=== PATIENT | female | born 1950 | race Caucasian/White ===

== ENCOUNTER 2017-03-14 08:08 | Observation (INO) | payer OTHER, SELFPAY ==
[2017-03-14 08:48] VITALS: BMI 33.8
[2017-03-14] MEDS ORDERED: DiphenhydrAMINE 50 mg/ml Inj IVP STA (10:00)
[2017-03-14] MEDS ORDERED: Piperacillin/Tazobact 3.375 gm 100 ML IVPB STA (10:00)
[2017-03-14] MEDS ORDERED: Vancomycin 1gm in NS 250ml 1 GM/250 ML BAG IVPB STA (10:00)
--- NOTE | 2017-03-14 10:06 | ED PDOC ---
Arrival/HPI - General Chief Complaint: Finger,Hand,&Wrist Time Seen by Provider: 03/14/17 08:09 Historian: Patient - History of Present Illness Narrative History of Present Illness (Text): 03/14/17 10:03 66 y/o female, pmh including htn/dm, nkda, c/o lt. hand 4th digit finger swelling x 3 days. Pt. stated that she woke up from sleeping 3 days ago has been swelling and pain, more redness and swelling for the past 2 days, painful to bend and extend, no numbness or tingling, no fever or chills, no night sweat , no dizziness, no other medical or psychological complaints. Past Medical History - Provider Review Nursing Documentation Reviewed: Yes - Tetanus Immunization Tetanus Immunization: Unknown - Reproductive Menopause: Yes - Cardiac Hx Cardiac Disorders: Yes Hx Hypertension: Yes - Pulmonary Hx Respiratory Disorders: No - Neurological Hx Neurological Disorder: No - HEENT Hx HEENT Disorder: No - Renal Hx Renal Disorder: No - Endocrine/Metabolic Hx Endocrine Disorders: No - Hematological/Oncological Hx Blood Disorders: No - Integumentary Hx Dermatological Disorder: No - Musculoskeletal/Rheumatological Hx Musculoskeletal Disorders: No - Gastrointestinal Hx Gastrointestinal Disorders: No - Genitourinary/Gynecological Hx Genitourinary Disorders: No - Psychiatric Hx Psychophysiologic Disorder: No Hx Emotional Abuse: No Hx Physical Abuse: No Hx Substance Use: No - Past Surgical History Past Surgical History: No Previous - Surgical History Hx Tubal Ligation: Yes Other/Comment: LT LEG SURGERY - Anesthesia Hx Anesthesia: Yes Hx Anesthesia Reactions: No Hx Malignant Hyperthermia: No - Suicidal Assessment Feels Threatened In Home Enviroment: No Family/Social History - Physician Review Nursing Documentation Reviewed: Yes Family/Social History: Unknown Family HX Smoking Status: Never Smoked Hx Alcohol Use: No Hx Substance Use: No Hx Substance Use Treatment: No Allergies/Home Meds Allergies/Adverse Reactions: Allergies No Known Allergies Allergy (Verified 03/14/17 08:48) Home Medications: Home Meds Medication Instructions Recorded Confirmed Enalapril/Hydrochlorothiazide 1 each PO DAILY 03/14/17 03/14/17 [Enalapril-Hctz 10-25 mg Tablet] Review of Systems - Review of Systems Constitutional: absent: Fatigue, Fevers Eyes: absent: Vision Changes ENT: absent: Hearing Changes Respiratory: absent: SOB, Cough Cardiovascular: absent: Chest Pain Gastrointestinal: absent: Abdominal Pain, Nausea, Vomiting Musculoskeletal: Arthralgias, Joint Swelling. absent: Back Pain, Neck Pain, Myalgias Skin: Rash, Cellulitis. absent: Pruritis, Skin Lesions, Laceration, Abscess, Ulcer Neurological: absent: Headache, Dizziness, Focal Weakness Physical Exam Vital Signs Reviewed: Yes Vital Signs Temp Pulse Resp BP Pulse Ox 03/14/17 11:47 97.9 F 61 18 160/70 H 100 03/14/17 08:44 97.9 F 67 18 154/69 H 98 Temperature: Afebrile Blood Pressure: Hypertensive Pulse: Regular Respiratory Rate: Normal Appearance: Positive for: Well-Appearing, Non-Toxic, Comfortable Pain Distress: Moderate Mental Status: Positive for: Alert and Oriented X 3 - Systems Exam Head: Present: Atraumatic, Normocephalic Pupils: Present: PERRL Extroacular Muscles: Present: EOMI Conjunctiva: Present: Normal Mouth: Present: Moist Mucous Membranes Neck: Present: Normal Range of Motion Respiratory/Chest: Present: Clear to Auscultation, Good Air Exchange. No: Respiratory Distress, Accessory Muscle Use Cardiovascular: Present: Regular Rate and Rhythm, Normal S1, S2. No: Murmurs Abdomen: Present: Normal Bowel Sounds. No: Tenderness, Distention, Peritoneal Signs Back: Present: Normal Inspection Upper Extremity: Present: Normal Inspection, Other (Lt. hand: +ttp and swelling with tenderness on the 4th digit finger with erythematous streaking up to the extensor surface, no flexor tendon tenderness, painful to flex the 4th DIPJ and PIPJ actively, +radial pulse, capillary refill< 2 seconds, neurovasular intact. ). No: Cyanosis, Edema Lower Extremity: Present: Normal Inspection. No: Edema Neurological: Present: GCS=15, CN II-XII Intact, Speech Normal Skin: Present: Warm, Dry, Normal Color. No: Rashes Psychiatric: Present: Alert, Oriented x 3, Normal Insight, Normal Concentration Medical Decision Making ED Course and Treatment: 03/14/17 10:06 -labs/blood culture -chest xray and and lt. hand 4th digit xray -IV vancomycin/zosyn/toradol/benadryl/fluid -need to be admitted for IV antibiotic with ID/hand specialist consult as clinically concerning about the extensive of the infection as I clinically can not rule out tenosynovitis vs. flexor tendon infection vs. other underlying infectious cause. -discussed with DR. Wright about the case and he agreed to observe the patient.- 03/14/17 12:39 -EKG: Sinus Bradycardia @ 56 BPM, no ST elevation or depression, no T wave inversion. -Chest xray show no active disease -Lt. hand 4th digit show cortical deformity, no recent fall or trauma with no pain until the redness started, finger splinted applied for supportive treatment. -Labs are non-significant -UA show +UTI 03/14/17 13:14 -I spoke to Dr. Dalton, discussed about the case, agreed on the admission. - Lab Interpretations Lab Results: 03/14/17 10:05 03/14/17 12:00 Lab Results 03/14/17 12:00: Sodium 141, Potassium 3.9, Chloride 103, Carbon Dioxide 28, Anion Gap 14, BUN 13, Creatinine 0.8, Est GFR ( Amer) > 60, Est GFR (Non- Af Amer) > 60, Random Glucose 86, Calcium 8.9, Total Bilirubin 0.5, AST 19, ALT 27, Alkaline Phosphatase 68, Total Protein 7.3, Albumin 4.1, Globulin 3.2, Albumin/Globulin Ratio 1.3 03/14/17 10:05: Urine Color Yellow, Urine Appearance Sl cloudy, Urine pH 7.0, Ur Specific [place] 1.010, Urine Protein Negative, Urine Glucose (UA) Negative, Urine Ketones Negative, Urine Blood Small H, Urine Nitrate Negative, Urine Bilirubin Negative, Urine Urobilinogen 0.2, Ur Leukocyte Esterase Large H, Urine RBC 2 - 5, Urine WBC 20 - 25, Ur Epithelial Cells 1 - 3, Urine Bacteria Few 03/14/17 10:05: WBC 8.6 D, RBC 4.60, Hgb 14.1, Hct 41.6, MCV 90.4, MCH 30.7, MCHC 33.9, RDW 13.4, Plt Count 251, MPV 10.8, Gran % 63.5, Lymph % (Auto) 25.6, [place] % (Auto) 8.8 H, Eos % (Auto) 1.9, Baso % (Auto) 0.2, Gran # 5.44, Lymph # 2.2, [place] # 0.8 H, Eos # 0.2, Baso # 0.02 I have reviewed the lab results: Yes Interpretation: Abnormal lab values (+UTI) - RAD Interpretation Radiology Orders: 03/14/17 10:00 CHEST ONE VIEW [RAD] Stat 03/14/17 10:01 HAND LEFT 4TH DIGIT (FINGER) [RAD] Stat This report is currently processing and HAS NOT BEEN OFFICIALLY SIGNED BY THE PHYSICIAN - ESTIMATED TIME OF APPROVAL IS 03/14/2017 11:14. PROCEDURE: Left Hand and 4th digit Radiographs. HISTORY: lt. hand 4th digit swelling COMPARISON: None. FINDINGS: BONES: There is a small calcification or bony fragment on the radial side of the 4th DIP joint. The age of this injury is uncertain. Clinical correlation is suggested JOINTS: Normal. No osteoarthritic changes. SOFT TISSUES: Normal. OTHER FINDINGS: None. IMPRESSION: There is a small calcification or bony fragment on the radial side of the 4th DIP joint. The age of this injury is uncertain. Clinical correlation is suggested Chest xray: no active disease Design Lead: Radiologist - EKG Interpretation EKG Interpretation (Text): 03/14/17 11:15 -EKG: Sinus Bradycardia @ 56 BPM, no ST elevation or depression, no T wave inversion. Interpreted by ED Physician: Yes Type: 12 lead EKG - Medication Orders Current Medication Orders: Sodium Chloride (Sodium Chloride 0.9%) 1,000 mls @ 100 mls/hr IV .Q10H YOVANNY Last Admin: 03/14/17 10:19 Dose: 100 mls/hr Discontinued Medications Diphenhydramine HCl (Benadryl) 25 mg IVP STAT STA Stop: 03/14/17 10:01 Last Admin: 03/14/17 10:18 Dose: 25 mg Vancomycin HCl (Vancomycin 1gm) 1 gm in 250 mls @ 167 mls/hr IVPB STAT STA PRN Reason: Protocol Stop: 03/14/17 11:29 Last Admin: 03/14/17 11:32 Dose: 167 mls/hr Piperacillin Sod/Tazobactam Sod (Zosyn 3.375 In Ns 100ml) 100 mls @ 200 mls/hr IVPB STAT STA PRN Reason: Protocol Stop: 03/14/17 10:29 Last Admin: 03/14/17 10:18 Dose: 200 mls/hr Ketorolac Tromethamine (Toradol) 30 mg IVP STAT STA Stop: 03/14/17 10:01 Last Admin: 03/14/17 10:18 Dose: 30 mg - 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 Disposition/Present on Arrival - Present on Arrival Any Indicators Present on Arrival: No History of DVT/PE: No History of Uncontrolled Diabetes: No Urinary Catheter: No History of Decub. Ulcer: No History Surgical Site Infection Following: None - Disposition Have Diagnosis and Disposition been Completed?: Yes Diagnosis: Cellulitis, UTI (urinary tract infection) Disposition: HOSPITALIZED Disposition Time: 10:08 Patient Plan: Admission, Observation Patient Problems: Current Active Problems Problem Status Onset Cellulitis Acute UTI (urinary tract infection) Acute Condition: GOOD Discharge Instructions (ExitCare): Cellulitis (ED) Referrals: PCP,NO [Primary Care Provider] - Follow up with primary
[2017-03-14] MEDS: Sodium Chloride 0.9% 1,000 ML IV SCH (10:19)
[2017-03-14 10:40] LABS: URINE BILIRUBIN NEGATIVE (NEGATIVE); URINE BLOOD SMALL (NEGATIVE); URINE GLUCOSE (UA) NEGATIVE (NEGATIVE); URINE LEUKOCYTE ESTERASE LARGE Leu/uL (NEGATIVE); URINE NITRATE NEGATIVE (NEGATIVE); URINE PROTEIN NEGATIVE mg/dL (<30 mg/dL); URINE UROBILINOGEN 0.2 E.U./dL (<1 E.U./dL)
[2017-03-14 10:56] LABS: BASO # 0.02 K/mm3 (0.0-2.0); BASO % 0.2 % (0.0-3.0); EOS # 0.2 (0.0-0.7); EOS % 1.9 % (1.5-5.0); GRAN # 5.44 (1.4-6.5); GRAN % 63.5 % (50.0-68.0); HEMOGLOBIN 14.1 gm/dL (12.0-16.0); LYMPH # 2.2 (1.2-3.4); LYMPH % 25.6 % (22.0-35.0); MEAN CELL VOLUME 90.4 fL (80.0-105.0); MEAN CORPUSCULAR HEMOGLOBIN 30.7 pg (25.0-35.0); MEAN CORPUSCULAR HGB CONC 33.9 g/dl (31.0-37.0); MEAN PLATELET VOLUME 10.8 fl (7.0-11.0); MONO # 0.8 (0.1-0.6); MONO % 8.8 % (1.0-6.0); PLATELET COUNT 251 10^3/uL (120.0-450.0); RED CELL DISTRIBUTION WIDTH 13.4 % (11.5-14.5); WHITE BLOOD COUNT 8.6 10^3/ul (4.5-11.0)
[2017-03-14 10:58] LABS: URINE APPEARANCE SL CLOUDY (CLEAR); URINE COLOR YELLOW (YELLOW)
[2017-03-14 10:59] LABS: URINE WBC 20 - 25 /hpf (0-6)
[2017-03-14 11:01] LABS: URINE BACTERIA FEW (NEG)
--- NOTE | 2017-03-14 11:10 | RAD ---
PROCEDURE: Left Hand and 4th digit Radiographs. HISTORY: lt. hand 4th digit swelling COMPARISON: None. FINDINGS: BONES: There is a small calcification or bony fragment on the radial side of the 4th DIP joint. The age of this injury is uncertain. Clinical correlation is suggested JOINTS: Normal. No osteoarthritic changes. SOFT TISSUES: Normal. OTHER FINDINGS: None. IMPRESSION: There is a small calcification or bony fragment on the radial side of the 4th DIP joint. The age of this injury is uncertain. Clinical correlation is suggested
--- NOTE | 2017-03-14 11:13 | RAD ---
PROCEDURE: CHEST RADIOGRAPH, 1 VIEW HISTORY: medical clearance COMPARISON: None available. FINDINGS: LUNGS: Clear. PLEURA: No pneumothorax or pleural fluid seen. CARDIOVASCULAR: Normal. OSSEOUS STRUCTURES: No significant abnormalities. VISUALIZED UPPER ABDOMEN: Normal. OTHER FINDINGS: None. IMPRESSION: No active disease.
[2017-03-14 12:26] LABS: ALB/GLOB RATIO 1.3 (1.1-1.8); ALBUMIN 4.1 g/dL (3.0-4.8); ALT/SGPT 27 U/L (7-56); AST/SGOT 19 U/L (15-39); BLOOD UREA NITROGEN 13 mg/dL (7-21); CALCIUM 8.9 mg/dL (8.4-10.5); GFR AFRICAN-AMERICAN > 60; GFR NON-AFRICAN AMERICAN > 60
--- NOTE | 2017-03-14 16:52 | CP.PCM.HP ---
<SAMANTHA BULL - Last Filed: 03/14/17 16:46> History of Present Illness - History of Present Illness History of Present Illness: 66 yo female with pmh of HTN presents today with a complaint of a painfully swollen left finger. She woke up with the pain and swelling 2 days ago and denies any trauma, insect bites or other provoking events. The pain is constant and localized and described as a 10/10 right now. The pain is worse with movement. She has kept it elevated and on ice but the pain has not subsided , thus she came in today. Patient states that she has no pain above or below the swollen joint. Patient denies any associated symptoms such as fever, headache, chest pain, cough, nausea/vomitting, diarrhea, abdominal pain, numbness/tingling, painful urination or rash. Present on Admission - Present on Admission Any Indicators Present on Admission: No Review of Systems - Review of Systems All systems: reviewed and no additional remarkable complaints except (see HPI) Past Patient History - Infectious Disease Hx of Infectious Diseases: None - Tetanus Immunizations Tetanus Immunization: Unknown - Past Medical History & Family History Past Medical History?: Yes Past Family History: Reviewed and not pertinent - Past Social History Smoking Status: Former Smoker Chewing Tobacco Use: No Cigar Use: Yes Alcohol: None Drugs: Denies Home Situation {Lives}: Alone - CARDIAC Hx Hypertension: Yes - PULMONARY Hx Respiratory Disorders: No - NEUROLOGICAL Hx Neurological Disorder: No - HEENT Hx HEENT Problems: No - RENAL Hx Chronic Kidney Disease: No - ENDOCRINE/METABOLIC Hx Endocrine Disorders: No - HEMATOLOGICAL/ONCOLOGICAL Hx Blood Disorders: No - INTEGUMENTARY Hx Dermatological Problems: No - MUSCULOSKELETAL/RHEUMATOLOGICAL Hx Musculoskeletal Disorders: No - GASTROINTESTINAL Hx Gastrointestinal Disorders: No - GENITOURINARY/GYNECOLOGICAL Hx Genitourinary Disorders: No - PSYCHIATRIC Hx Psychophysiologic Disorder: No Hx Emotional Abuse: No Hx Physical Abuse: No Hx Substance Use: No - SURGICAL HISTORY Hx Tubal Ligation: Yes Other/Comment: LT LEG SURGERY - ANESTHESIA Hx Anesthesia: Yes Hx Anesthesia Reactions: No Hx Malignant Hyperthermia: No Meds Allergies/Adverse Reactions: Allergies Allergy/AdvReac Type Severity Reaction Status Date / Time No Known Allergies Allergy Verified 03/14/17 08:48 Physical Exam - Constitutional Appears: No Acute Distress - Head Exam Head Exam: NORMAL INSPECTION, NORMOCEPHALIC - Eye Exam Eye Exam: EOMI, Normal appearance - ENT Exam ENT Exam: Mucous Membranes Moist, Normal Exam - Neck Exam Neck exam: Positive for: Full Rom - Respiratory Exam Respiratory Exam: NORMAL BREATHING PATTERN. absent: Wheezes, Respiratory Distress - Cardiovascular Exam Cardiovascular Exam: REGULAR RHYTHM, RRR, +S1, +S2 - GI/Abdominal Exam GI & Abdominal Exam: Normal Bowel Sounds. absent: Distended, Tenderness - Extremities Exam Extremities exam: Positive for: joint swelling, normal capillary refill, tenderness. Negative for: calf tenderness, pedal edema Additional comments: edematous and tender left 4th digit DIP with limited ROM and minimal erythema - Neurological Exam Neurological exam: Alert, Normal Gait, Oriented x3 - Psychiatric Exam Psychiatric exam: Normal Affect, Normal Mood - Skin Skin Exam: Dry, Intact, Normal Color, Warm Results - Vital Signs Recent Vital Signs: Last Vital Signs Temp 98.0 F 03/14/17 14:11 Pulse 58 L 03/14/17 14:11 Resp 18 03/14/17 14:11 BP 165/77 H 03/14/17 14:11 Pulse Ox 100 03/14/17 14:11 - Labs Result Diagrams: 03/14/17 10:05 03/14/17 12:00 Assessment & Plan - Assessment and Plan (Free Text) Assessment: 66 yo F with PMH of HTN and osteoarthritis presents with two days of left 4th digit swelling 1. Inflammed left 4th digit DIP -XRAY: small calcification or bony fragment on radial side of left 4th DIP joint -patient given vanc/zosyn in ED; currently on Rocephin -ID and Ortho consulted -currently no fever, leukocytosis and chest xray was normal -blood cultures pending -pain controlled with motrin 2. UTI -large leukocyte esterase on UA -currently asymptomatic -currently on Rocephin -normal saline at 100mls/hour 3. HTN -lisinopril/HCTZ 4. GI/DVT Prophylaxis -protonix/SCD's Patient seen and case discussed with attending physician, Dr. Dalton. - Date & Time Date: 03/14/17 Time: 05:00 Decision To Admit - Pt Status Changed To: Hospital Disposition Of: Observation - . Bed Request Type: Med/Surg Admitting Physician: Fallon Dalton <Fallon Dalton - Last Filed: 03/14/17 17:47> Results - Vital Signs Recent Vital Signs: Last Vital Signs Temp 97.9 F 03/14/17 15:30 Pulse 63 03/14/17 15:30 Resp 18 03/14/17 15:30 BP 150/80 03/14/17 15:30 Pulse Ox 100 03/14/17 14:11 - Labs Result Diagrams: 03/14/17 10:05 03/14/17 12:00 Attending/Attestation - Attestation I have personally seen and examined this patient.: Yes I have fully participated in the care of the patient.: Yes I have reviewed all pertinent clinical information: Yes Notes (Text): 03/14/17 17:44 66 year old female with past medical history of hypertension and arthritis who presents with left 4th digit swelling and erythema. Xray showed small calcification or bony fragment on radial side of left 4th DIP joint. ID evaluation is requested. May also need hand surgery or orthopedic evaluation. Continue with iv antibiotics and motrin prn for pain. Continue with home medications for hypertension. +UA noted, though asymptomatic. Will follow up on Ucx. Fallon Dalton MD Hospitalist.
--- NOTE | 2017-03-14 17:36 | CARD ---
APPROVED REPORT EKG Measurement Heart [id number] <Conclusion> Poor data quality, interpretation may be adversely affected Sinus bradycardia Otherwise normal ECG
[2017-03-14] MEDS ORDERED: Vancomycin 1gm in NS 250ml 1 GM/250 ML BAG IVPB SCH (19:15)
[2017-03-14] MEDS: Vancomycin 1gm in NS 250ml 1 GM/250 ML BAG IVPB SCH (22:43)
[2017-03-15] MEDS: Sodium Chloride 0.9% 1,000 ML IV SCH (06:04)
[2017-03-15 07:38] LABS: BASO # 0.02 K/mm3 (0.0-2.0); BASO % 0.3 % (0.0-3.0); EOS # 0.2 (0.0-0.7); EOS % 2.5 % (1.5-5.0); GRAN # 5.18 (1.4-6.5); GRAN % 64.9 % (50.0-68.0); HEMOGLOBIN 13.1 gm/dL (12.0-16.0); LYMPH # 1.9 (1.2-3.4); LYMPH % 24.2 % (22.0-35.0); MEAN CELL VOLUME 90.7 fL (80.0-105.0); MEAN CORPUSCULAR HEMOGLOBIN 30.4 pg (25.0-35.0); MEAN CORPUSCULAR HGB CONC 33.5 g/dl (31.0-37.0); MEAN PLATELET VOLUME 10.4 fl (7.0-11.0); MONO # 0.7 (0.1-0.6); MONO % 8.1 % (1.0-6.0); PLATELET COUNT 227 10^3/uL (120.0-450.0); RBC 4.31 10^6/uL (3.5-6.1); RED CELL DISTRIBUTION WIDTH 13.7 % (11.5-14.5)
[2017-03-15 07:48] LABS: ALB/GLOB RATIO 1.2 (1.1-1.8); ALBUMIN 3.6 g/dL (3.0-4.8); ALT/SGPT 28 U/L (7-56); AST/SGOT 24 U/L (15-39); BLOOD UREA NITROGEN 14 mg/dL (7-21); CALCIUM 8.4 mg/dL (8.4-10.5); GFR AFRICAN-AMERICAN > 60; GFR NON-AFRICAN AMERICAN > 60
[2017-03-15 08:26] VITALS: RESP 22; TEMP 98.4; O2SAT 96
[2017-03-15 09:34] VITALS: BP 115/62; PULSE 53
[2017-03-15] MEDS ORDERED: cefTRIAXone 1 gm 1 GM/100 ML BAG IVPB SCH (10:00)
[2017-03-15] MEDS: Vancomycin 1gm in NS 250ml 1 GM/250 ML BAG IVPB SCH (10:46)
--- NOTE | 2017-03-15 11:51 | CP.PCM.CON ---
History of Present Illness - History of Present Illness History of Present Illness: 66 year old female with PMH of HTN, obesity with BMI 34 came in to [facility] complaining of pain and swelling of her left 4th digit. She denies specific trauma to the finger, does not recall insect bites or animal contacts. She denies soaking her hands in water. She denies fever or chills, no nausea or vomiting, no headache or dizziness, no chest pain, no SOB, no cough or colds, no abdominal pain, no diarrhea, no dysuria. Infectious Diseases consult is requested to further evaluate and manage. Review of Systems - Review of Systems All systems: reviewed and no additional remarkable complaints except (as per HPI ) Past Patient History - Infectious Disease Hx of Infectious Diseases: None - Tetanus Immunizations Tetanus Immunization: Unknown - Past Medical History & Family History Past Medical History?: Yes Past Family History: Reviewed and not pertinent - Past Social History Smoking Status: Former Smoker Chewing Tobacco Use: No Cigar Use: Yes Alcohol: None Drugs: Denies Home Situation {Lives}: Alone - CARDIAC Hx Hypertension: Yes - PULMONARY Hx Respiratory Disorders: No - NEUROLOGICAL Hx Neurological Disorder: No - HEENT Hx HEENT Problems: No - RENAL Hx Chronic Kidney Disease: No - ENDOCRINE/METABOLIC Hx Endocrine Disorders: No - HEMATOLOGICAL/ONCOLOGICAL Hx Blood Disorders: No - INTEGUMENTARY Hx Dermatological Problems: No - MUSCULOSKELETAL/RHEUMATOLOGICAL Hx Musculoskeletal Disorders: No - GASTROINTESTINAL Hx Gastrointestinal Disorders: No - GENITOURINARY/GYNECOLOGICAL Hx Genitourinary Disorders: No - PSYCHIATRIC Hx Psychophysiologic Disorder: No Hx Emotional Abuse: No Hx Physical Abuse: No Hx Substance Use: No - SURGICAL HISTORY Hx Tubal Ligation: Yes Other/Comment: LT LEG SURGERY - ANESTHESIA Hx Anesthesia: Yes Hx Anesthesia Reactions: No Hx Malignant Hyperthermia: No Meds Home Medications: Home Medication List Medication Instructions Recorded Confirmed Type Amoxicillin/Clavulanate [Augmentin 1 tab PO BID #20 tab 03/15/17 Rx 875 MG-125 MG] Doxycycline Hyclate [Doryx] 100 mg PO BID #20 cap 03/15/17 Rx Allergies/Adverse Reactions: Allergies Allergy/AdvReac Type Severity Reaction Status Date / Time No Known Allergies Allergy Verified 03/14/17 08:48 - Medications Medications: Current Medications Hydrochlorothiazide (Hydrodiuril) 25 mg PO DAILY YOVANNY Sodium Chloride (Sodium Chloride 0.9%) 1,000 mls @ 100 mls/hr IV .Q10H YOVANNY Last Admin: 03/14/17 10:19 Dose: 100 mls/hr Ceftriaxone Sodium (Rocephin 1 Gram Ivpb) 1 gm in 100 mls @ 100 mls/hr IVPB DAILY YOVANNY PRN Reason: Protocol Ibuprofen (Motrin Tab) 400 mg PO Q6H PRN PRN Reason: Pain, moderate (4-7) Lisinopril (Zestril) 20 mg PO DAILY [facility] Physical Exam - Constitutional Appears: Non-toxic, No Acute Distress - Head Exam Head Exam: NORMAL INSPECTION - Neck Exam Neck exam: Negative for: Meningismus - Respiratory Exam Respiratory Exam: Decreased Breath Sounds - Cardiovascular Exam Cardiovascular Exam: +S1, +S2 - GI/Abdominal Exam GI & Abdominal Exam: Soft. absent: Tenderness Results - Vital Signs Recent Vital Signs: Last Vital Signs Temp 97.9 F 03/14/17 15:30 Pulse 63 03/14/17 17:47 Resp 18 03/14/17 15:30 BP 150/80 03/14/17 17:47 Pulse Ox 100 03/14/17 14:11 - Labs Result Diagrams: 03/15/17 06:45 03/15/17 06:45 Assessment & Plan - Assessment and Plan (Free Text) Plan: Assessment left 4th finger skin and skin structure infection HTN obesity with BMI 34 Plan Started patient on vancomycin and rocephin pending blood cx will monitor clinical response
--- NOTE | 2017-03-15 15:10 | CP.PCM.DIS ---
<SAMANTHA BULL - Last Filed: 03/15/17 15:16> Provider - Provider Date of Admission: 03/14/17 13:16 Attending physician: Tatiana Kelley MD Primary care physician: NO PRIMARY CARE PROVIDER Consults: Orthopedics: [facility] Time Spent in preparation of Discharge (in minutes): 44 Hospital Course - Lab Results Lab Results: Most Recent Lab Values WBC 8.0 10^3/ul (4.5-11.0) 03/15/17 06:45 RBC 4.31 10^6/uL (3.5-6.1) 03/15/17 06:45 Hgb 13.1 gm/dL (12.0-16.0) 03/15/17 06:45 Hct 39.1 % (36.0-48.0) 03/15/17 06:45 MCV 90.7 fL (80.0-105.0) 03/15/17 06:45 MCH 30.4 pg (25.0-35.0) 03/15/17 06:45 MCHC 33.5 g/dl (31.0-37.0) 03/15/17 06:45 RDW 13.7 % (11.5-14.5) 03/15/17 06:45 Plt Count 227 10^3/uL (120.0-450.0) 03/15/17 06:45 MPV 10.4 fl (7.0-11.0) 03/15/17 06:45 Gran % 64.9 % (50.0-68.0) 03/15/17 06:45 Lymph % (Auto) 24.2 % (22.0-35.0) 03/15/17 06:45 Mower % (Auto) 8.1 % (1.0-6.0) H 03/15/17 06:45 Eos % (Auto) 2.5 % (1.5-5.0) 03/15/17 06:45 Baso % (Auto) 0.3 % (0.0-3.0) 03/15/17 06:45 Gran # 5.18 (1.4-6.5) 03/15/17 06:45 Lymph # 1.9 (1.2-3.4) 03/15/17 06:45 Mower # 0.7 (0.1-0.6) H 03/15/17 06:45 Eos # 0.2 (0.0-0.7) 03/15/17 06:45 Baso # 0.02 K/mm3 (0.0-2.0) 03/15/17 06:45 Sodium 138 mmol/L (132-148) 03/15/17 06:45 Potassium 4.0 mmol/L (3.6-5.0) 03/15/17 06:45 Chloride 105 mmol/L (98-107) 03/15/17 06:45 Carbon Dioxide 25 mmol/L (21-33) 03/15/17 06:45 Anion Gap 12 (10-20) 03/15/17 06:45 BUN 14 mg/dL (7-21) 03/15/17 06:45 Creatinine 0.8 mg/dL (0.5-1.4) 03/15/17 06:45 Est GFR ( Amer) > 60 03/15/17 06:45 Est GFR (Non-Af Amer) > 60 03/15/17 06:45 Random Glucose 89 mg/dL (70-110) 03/15/17 06:45 Calcium 8.4 mg/dL (8.4-10.5) 03/15/17 06:45 Total Bilirubin 0.5 mg/dL (0.2-1.3) 03/15/17 06:45 AST 24 U/L (15-39) 03/15/17 06:45 ALT 28 U/L (7-56) 03/15/17 06:45 Alkaline Phosphatase 52 U/L (38-133) 03/15/17 06:45 Total Protein 6.5 g/dL (5.8-8.3) 03/15/17 06:45 Albumin 3.6 g/dL (3.0-4.8) 03/15/17 06:45 Globulin 2.9 gm/dL 03/15/17 06:45 Albumin/Globulin Ratio 1.2 (1.1-1.8) 03/15/17 06:45 Urine Color Yellow (YELLOW) 03/14/17 10:05 Urine Appearance Sl cloudy (CLEAR) 03/14/17 10:05 Urine pH 7.0 (4.7-8.0) 03/14/17 10:05 Ur Specific [place] 1.010 (1.005-1.035) 03/14/17 10:05 Urine Protein Negative mg/dL (<30 mg/dL) 03/14/17 10:05 Urine Glucose (UA) Negative mg/dL (NEGATIVE) 03/14/17 10:05 Urine Ketones Negative mg/dL (NEGATIVE) 03/14/17 10:05 Urine Blood Small (NEGATIVE) H 03/14/17 10:05 Urine Nitrate Negative (NEGATIVE) 03/14/17 10:05 Urine Bilirubin Negative (NEGATIVE) 03/14/17 10:05 Urine Urobilinogen 0.2 E.U./dL (<1 E.U./dL) 03/14/17 10:05 Ur Leukocyte Esterase Large Abdulaziz/uL (NEGATIVE) H 03/14/17 10:05 Urine RBC 2 - 5 /hpf (0-2) 03/14/17 10:05 Urine WBC 20 - 25 /hpf (0-6) 03/14/17 10:05 Ur Epithelial Cells 1 - 3 /hpf (0-5) 03/14/17 10:05 Urine Bacteria Few (NEG) 03/14/17 10:05 - Hospital Course Hospital Course: 66 yo female with pmh of HTN presented with a complaint of a painfully swollen left fourth digit. An X-Ray was ordered of patients left hand that revealed a small calcification or bony fragment on the radial side of the left 4th digit DIP. Patient was started on Vancomycin and Zosyn in the ED but was then put on Rocephin after she was admitted. Ortho was consulted and suggested patient be seen by a hand surgeon outpatient. Patient was sent home on Augmentin and Doxycycline as well as given instructions on how to schedule an appointment with Dr. Layton, a hand surgeon. - Date & Time of H&P Date of H&P: 03/14/17 Time of H&P: 16:45 Discharge Exam - Head Exam Head Exam: NORMAL INSPECTION - Eye Exam Eye Exam: EOMI, Normal appearance - ENT Exam ENT Exam: Mucous Membranes Moist, Normal Exam - Neck Exam Neck exam: Full Rom - Respiratory Exam Respiratory Exam: Clear to PA & Lateral, NORMAL BREATHING PATTERN. absent: Rales, Wheezes, Respiratory Distress - Cardiovascular Exam Cardiovascular Exam: REGULAR RHYTHM, RRR, +S1, +S2 - GI/Abdominal Exam GI & Abdominal Exam: Normal Bowel Sounds. absent: Distended, Tenderness - Extremities Exam Additional comments: no lower extremity edema or calf tenderness - Neurological Exam Neurological exam: Alert, Normal Gait, Oriented x3 - Psychiatric Exam Psychiatric exam: Normal Affect, Normal Mood - Skin Skin Exam: Dry, Intact, Normal Color, Warm - Additional Findings Additional findings: L 4th digit DIP with minimal erythema and edema; limited ROM Discharge Plan - Discharge Medications Prescriptions: Amoxicillin/Clavulanate [Augmentin 875 MG-125 MG] 1 tab PO BID #20 tab Doxycycline Hyclate [Doryx] 100 mg PO BID #20 cap - Follow Up Plan Condition: GOOD Disposition: HOME/ ROUTINE Instructions: Cellulitis (DC), Heart Healthy Diet (DC), Chronic Hypertension ( DC) Additional Instructions: Call Dr Layton - Hand surgery - to set up an appointment. F/U with PMD with in 2-3 days. If your symptoms worsen come back to the ED. Referrals: PCP,NO [Primary Care Provider] - Alexandra Layton MD [Non-Staff] - <Tatiana Kelley - Last Filed: 03/15/17 18:10> Provider - Provider Date of Admission: 03/14/17 13:16 Attending physician: Tatiana Kelley MD Primary care physician: KEVIN PRIMARY CARE PROVIDER Hospital Course - Lab Results Lab Results: Most Recent Lab Values WBC 8.0 10^3/ul (4.5-11.0) 03/15/17 06:45 RBC 4.31 10^6/uL (3.5-6.1) 03/15/17 06:45 Hgb 13.1 gm/dL (12.0-16.0) 03/15/17 06:45 Hct 39.1 % (36.0-48.0) 03/15/17 06:45 MCV 90.7 fL (80.0-105.0) 03/15/17 06:45 MCH 30.4 pg (25.0-35.0) 03/15/17 06:45 MCHC 33.5 g/dl (31.0-37.0) 03/15/17 06:45 RDW 13.7 % (11.5-14.5) 03/15/17 06:45 Plt Count 227 10^3/uL (120.0-450.0) 03/15/17 06:45 MPV 10.4 fl (7.0-11.0) 03/15/17 06:45 Gran % 64.9 % (50.0-68.0) 03/15/17 06:45 Lymph % (Auto) 24.2 % (22.0-35.0) 03/15/17 06:45 Mower % (Auto) 8.1 % (1.0-6.0) H 03/15/17 06:45 Eos % (Auto) 2.5 % (1.5-5.0) 03/15/17 06:45 Baso % (Auto) 0.3 % (0.0-3.0) 03/15/17 06:45 Gran # 5.18 (1.4-6.5) 03/15/17 06:45 Lymph # 1.9 (1.2-3.4) 03/15/17 06:45 Mower # 0.7 (0.1-0.6) H 03/15/17 06:45 Eos # 0.2 (0.0-0.7) 03/15/17 06:45 Baso # 0.02 K/mm3 (0.0-2.0) 03/15/17 06:45 Sodium 138 mmol/L (132-148) 03/15/17 06:45 Potassium 4.0 mmol/L (3.6-5.0) 03/15/17 06:45 Chloride 105 mmol/L (98-107) 03/15/17 06:45 Carbon Dioxide 25 mmol/L (21-33) 03/15/17 06:45 Anion Gap 12 (10-20) 03/15/17 06:45 BUN 14 mg/dL (7-21) 03/15/17 06:45 Creatinine 0.8 mg/dL (0.5-1.4) 03/15/17 06:45 Est GFR ( Amer) > 60 03/15/17 06:45 Est GFR (Non-Af Amer) > 60 03/15/17 06:45 Random Glucose 89 mg/dL (70-110) 03/15/17 06:45 Calcium 8.4 mg/dL (8.4-10.5) 03/15/17 06:45 Total Bilirubin 0.5 mg/dL (0.2-1.3) 03/15/17 06:45 AST 24 U/L (15-39) 03/15/17 06:45 ALT 28 U/L (7-56) 03/15/17 06:45 Alkaline Phosphatase 52 U/L (38-133) 03/15/17 06:45 Total Protein 6.5 g/dL (5.8-8.3) 03/15/17 06:45 Albumin 3.6 g/dL (3.0-4.8) 03/15/17 06:45 Globulin 2.9 gm/dL 03/15/17 06:45 Albumin/Globulin Ratio 1.2 (1.1-1.8) 03/15/17 06:45 Urine Color Yellow (YELLOW) 03/14/17 10:05 Urine Appearance Sl cloudy (CLEAR) 03/14/17 10:05 Urine pH 7.0 (4.7-8.0) 03/14/17 10:05 Ur Specific [place] 1.010 (1.005-1.035) 03/14/17 10:05 Urine Protein Negative mg/dL (<30 mg/dL) 03/14/17 10:05 Urine Glucose (UA) Negative mg/dL (NEGATIVE) 03/14/17 10:05 Urine Ketones Negative mg/dL (NEGATIVE) 03/14/17 10:05 Urine Blood Small (NEGATIVE) H 03/14/17 10:05 Urine Nitrate Negative (NEGATIVE) 03/14/17 10:05 Urine Bilirubin Negative (NEGATIVE) 03/14/17 10:05 Urine Urobilinogen 0.2 E.U./dL (<1 E.U./dL) 03/14/17 10:05 Ur Leukocyte Esterase Large Abdulaziz/uL (NEGATIVE) H 03/14/17 10:05 Urine RBC 2 - 5 /hpf (0-2) 03/14/17 10:05 Urine WBC 20 - 25 /hpf (0-6) 03/14/17 10:05 Ur Epithelial Cells 1 - 3 /hpf (0-5) 03/14/17 10:05 Urine Bacteria Few (NEG) 03/14/17 10:05 Attending/Attestation - Attestation I have personally seen and examined this patient.: Yes I have fully participated in the care of the patient.: Yes I have reviewed all pertinent clinical information, including history, physical exam and plan: Yes Notes (Text): 03/15/17 18:07 Attending note; Patient seen and examined with resident. Patient is a 66 year old female with past medical history of hypertension and arthritis who presents with left 4th digit swelling and erythema. Xray showed small calcification or bony fragment on radial side of left 4th DIP joint. ID evaluation appreciated. Treated with IV vancomycin. Swelling improved .able to flex fingers . Case discussed with orthopedics Dr. Brandan Rangel in detail . Patient can be discharged home with follow-up with hand surgeon as outpatient . We will discharge the patient home with by mouth Augmentin and doxycycline. Follow-up with hand surgery Dr. Layton in 1 week. Contact information given. Diagnosis; Left hand / 4th digit cellulitis Hypertension
== END 2017-03-15 13:36 | disposition home or self-care (01) ==
LOC: ED 08:08 → ERH 13:16 → 5RNO 14:19
PROVIDERS: ADMIT Internal Medicine; ATTEND Internal Medicine
DX: L03.012 Cellulitis of left finger (principal); I10 Essential (primary) hypertension; E11.9 Type 2 diabetes mellitus without complications; E66.9 Obesity, unspecified; Z68.34 Body mass index [BMI] 34.0-34.9, adult; N39.0 Urinary tract infection, site not specified; Z98.51 Tubal ligation status; Z87.891 Personal history of nicotine dependence; R40.2412 Glasgow coma scale score 13-15, at arrival to emergency department; M19.90 Unspecified osteoarthritis, unspecified site
CPT/HCPCS: 36415; 71010; 73140; 80053; 81001; 85025; 87040; 93005; 96365; 96366; 96367; 96375; 99285; G0378; J0696; J1200; J1885; J2543; J7040